=== PATIENT | female | born 1950 | race Caucasian/White ===

== ENCOUNTER 2023-01-13 09:37 | Emergency (ER) | payer MEDICARE ==
[~2023-01-13] VITALS: Ht 156.2 cm; Wt 62.0 kg
[2023-01-13 10:02] VITALS: BP 189/68
[2023-01-13] MEDS ORDERED: DOXYCYCLINE100 MG PO (10:09)
[2023-01-13] MEDS ORDERED: CEPHALEXIN500 M1 PO (10:09)
[2023-01-13 10:16] VITALS: BP 158/73
[2023-01-13] MEDS ORDERED: CEPHALEXIN500 MG PO (10:26)
[2023-01-13] MEDS ORDERED: DOXY-CAPS100 MG PO (10:26)
== END 2023-01-13 10:29 | disposition home or self-care (01) ==
LOC: ED 09:37
DX: L03.115 Cellulitis of right lower limb (principal)

== ENCOUNTER 2023-01-27 12:57 | Emergency (ER) | payer MEDICARE ==
[~2023-01-27] VITALS: Ht 156.2 cm; Wt 68.4 kg
[~2023-01-27 12:57] MED LIST: CEPHALEXIN500 M1 PO; CEPHALEXIN500 MG PO; DOXY-CAPS100 MG PO; DOXYCYCLINE100 MG PO
[2023-01-27 14:05] VITALS: BP 185/77
[2023-01-27 14:15] VITALS: BP 191/88
[2023-01-27 14:28] LABS: BASO% 1.1 % (0-3); HEMATOCRIT 36.1 % (37.0-47.0); HEMOGLOBIN 11.9 g/dl (12.0-16.0); IMMATURE GRANULOCYTES 0.4 % (0.0-5.0); LYMPH% 38.8 % (15-41); MEAN CELL VOLUME 92.6 fL CALC (80.0-100.0); MEAN CORPUSCULAR HGB 30.5 pG CALC (26.0-32.0); MONO% 9.3 % (2-13); NEUT# 1.28 thou/uL (2.00-7.15); NEUT% 45.4 % (42-76); RED BLOOD COUNT 3.9 mill/uL (4.20-5.60); RED CELL DISTRI WIDTH 12.2 % (11.5-15.5)
[2023-01-27 14:31] VITALS: BP 165/73
[2023-01-27 14:41] LABS: ALBUMIN 4.4 g/dL (3.2-5.0); ALKALINE PHOSPHATASE 49 u/l (38-126); ANION GAP 9 (6-22 (CALC)); BILIRUBIN, TOTAL 0.1 mg/dL (0.02-1.3); BUN 22 mg/dL (8-23); BUN/CREATININE RATIO 34 (12-20 (CALC)); C-REACTIVE PROTEIN < 0.5 mg/dL (0-0.9); CARBON DIOXIDE 30 mmol/l (22-30); CHLORIDE 103 mmol/l (95-108); CREATININE 0.6 mg/dL (0.5-1.0); GFR FOR AFR.AMER. > 60 ML/MIN (>=60 (CALC)); GFR OTHER RACES > 60 ML/MIN (>=60 (CALC)); POTASSIUM 4.3 mmol/l (3.5-5.1); SGOT/AST 34 u/l (9-36); SODIUM 138 mmol/l (137-146)
[2023-01-27 14:45] VITALS: BP 169/76
[2023-01-27 15:00] VITALS: BP 169/75
[2023-01-27] MEDS ORDERED: COZAAR25 MG PO (15:09)
[2023-01-27] MEDS ORDERED: MEDDOSEPAK PO (15:09)
[2023-01-27 15:15] VITALS: BP 174/75
== END 2023-01-27 15:22 | disposition home or self-care (01) ==
LOC: ED 12:57
PROVIDERS: Nurse Practitioner
DX: L03.115 Cellulitis of right lower limb (principal); M25.571 Pain in right ankle and joints of right foot